=== PATIENT | female | born 1990 | race Caucasian/White ===

== ENCOUNTER 2020-07-13 17:42 | Outpatient (CLI) | payer OTHER, SELFPAY ==
[2020-07-13 18:15] VITALS: BP 141/91; PULSE 74
[2020-07-13 18:16] LABS: Basophils Percent Auto 0.4 % (0.2-1.2); Eosinophils Absolute Auto 0.1 K/mm3 (0-0.3); Eosinophils Percent Auto 0.7 % (0-4.4); Hematocrit 35.9 % (37.0-47.0); Hemoglobin 11.8 g/dL (12.0-15.0); Immature Granulocyte Absolute 0.03 K/mm3 (0.00-0.031); Immature Granulocyte Percent A 0.4 % (0-0.5); Lymphocytes Absolute Auto 1.44 K/mm3 (0.9-3.2); Lymphocytes Percent Auto 20.1 % (18.3-44.2); Mean Corpuscular HGB Conc 32.9 g/dl (32-36); Mean Corpuscular Hemoglobin 27.9 pg (26-34); Mean Corpuscular Volume 84.9 fl (80-100); Mean Platelet Volume 10.5 fl (7.4-10.4); Monocytes Absolute Auto 0.6 K/mm3 (0.1-0.6); Neutrophils Percent Auto 70.4 % (45.5-73.1); Platelet Count Result 215 k/mm3 (150-375); Red Blood Count 4.23 M/mm3 (4.2-5.4); Red Cell Distribution Width 14.8 % (11.5-14.5); White Blood Count 7.2 K/mm3 (4.5-10.0)
[2020-07-13 18:23] LABS: Add Urine Microscopic? YES; Appearance Urine Cloudy (Clear); Bacteria Urine Trace /hpf; Bilirubin Urine Negative (Negative); Blood Urine Negative (Negative); Color Urine Yellow (Yellow); Glucose Urine UA Negative (Negative); Ketones Urine Negative (Negative); Leukocyte Esterase Ur 2+ LEU/UL (NEGATIVE); Mucus Urine Rare /lpf; Nitrate Urine Negative (Negative); Protein Urine Negative (Negative); Specific Grav Ur 1.014 (1.001-1.035); Squamous Epithelial Cell Urine Many /hpf (Few); Urobilinogen Urine Negative mg/dL (<2.0)
[2020-07-13 18:25] LABS: Creatinine Urine 88.5 mg/dL; Total Protein Urine Random 21 mg/dL; Ur Ttl Prot Creatinine Ratio 0.24 mg/mg (0-0.20)
[2020-07-13 18:26] LABS: Alanine Aminotransferase 11 U/L (4-35); Albumin Level 3.3 g/dL (3.5-5.1); Alkaline Phosphatase 142 U/L (38-126); Anion Gap 4 mmol/L (8-16); Aspartate Amino Transferase 21 U/L (14-36); Bilirubin,Total 0.2 mg/dL (0.2-1.3); Blood Urea Nitrogen 7 mg/dL (7-17); Calcium 8.9 mg/dL (8.4-10.2); Carbon Dioxide 21 mmol/L (22-30); Chloride 109 mmol/L (98-107); Estimated Glomerular Filt Rate > 60; Glucose 99 mg/dL (65-105); Potassium 3.5 mmol/L (3.4-5.0); Sodium 134 mmol/L (137-145); Uric Acid 4.3 mg/dL (2.5-7.5)
[2020-07-13 18:31] VITALS: BP 145/93; PULSE 79
[2020-07-13 18:45] VITALS: BP 146/84; PULSE 79
[2020-07-13 19:00] VITALS: BP 142/95; PULSE 82
[2020-07-13 19:15] VITALS: BP 148/92; PULSE 82
[2020-07-13 19:20] VITALS: BP 141/91; PULSE 79
== END 2020-07-13 19:37 | disposition home or self-care (01) ==
LOC: ANHOBOP 17:47 → ANHOBPP 17:48
PROVIDERS: PCP Family Medicine; Visit Provider Obstetrics & Gynecology
DX: O13.9 Gestational [pregnancy-induced] hypertension without significant proteinuria, unspecified trimester (principal); Z3A.00 Weeks of gestation of pregnancy not specified
CPT/HCPCS: 36415; 59025; 80053; 81001; 82570; 84156; 84550; 85025; 87086; 99199

== ENCOUNTER 2020-07-15 20:22 | Observation (INO) | payer OTHER, SELFPAY ==
[2020-07-15 20:40] VITALS: BP 152/98; PULSE 75
[2020-07-15 20:45] VITALS: BP 150/98; PULSE 75
[2020-07-15 21:00] VITALS: BP 132/91; PULSE 75
[2020-07-15 21:07] LABS: Basophils Percent Auto 0.1 % (0.2-1.2); Eosinophils Absolute Auto 0.1 K/mm3 (0-0.3); Eosinophils Percent Auto 0.7 % (0-4.4); Hematocrit 35.7 % (37.0-47.0); Hemoglobin 11.8 g/dL (12.0-15.0); Immature Granulocyte Absolute 0.03 K/mm3 (0.00-0.031); Immature Granulocyte Percent A 0.4 % (0-0.5); Lymphocytes Absolute Auto 1.37 K/mm3 (0.9-3.2); Mean Corpuscular HGB Conc 33.1 g/dl (32-36); Mean Corpuscular Hemoglobin 27.7 pg (26-34); Mean Corpuscular Volume 83.8 fl (80-100); Mean Platelet Volume 10.5 fl (7.4-10.4); Monocytes Absolute Auto 0.5 K/mm3 (0.1-0.6); Monocytes Percent Auto 6.4 % (2.6-8.5); Neutrophils Absolute Auto 5.7 K/mm3 (1.3-6.7); Neutrophils Percent Auto 74.4 % (45.5-73.1); Platelet Count Result 205 k/mm3 (150-375); Red Blood Count 4.26 M/mm3 (4.2-5.4); Red Cell Distribution Width 14.7 % (11.5-14.5); White Blood Count 7.6 K/mm3 (4.5-10.0)
[2020-07-15 21:13] LABS: Add Urine Microscopic? YES; Appearance Urine Cloudy (Clear); Bacteria Urine 1+ /hpf; Bilirubin Urine Negative (Negative); Blood Urine Negative (Negative); Color Urine Yellow (Yellow); Glucose Urine UA Negative (Negative); Ketones Urine Negative (Negative); Leukocyte Esterase Ur 3+ LEU/UL (NEGATIVE); Mucus Urine Rare /lpf; Nitrate Urine Negative (Negative); Protein Urine 1+ mg/dL (Negative); Specific Grav Ur 1.015 (1.001-1.035); Squamous Epithelial Cell Urine Many /hpf (Few); Urobilinogen Urine Negative mg/dL (<2.0); WBC Urine 21-30 /hpf (0-3)
[2020-07-15 21:15] VITALS: BP 146/95; PULSE 73
[2020-07-15 21:22] LABS: Alanine Aminotransferase 10 U/L (4-35); Albumin Level 3.5 g/dL (3.5-5.1); Alkaline Phosphatase 172 U/L (38-126); Anion Gap 5 mmol/L (8-16); Aspartate Amino Transferase 20 U/L (14-36); Bilirubin,Total 0.3 mg/dL (0.2-1.3); Blood Urea Nitrogen 5 mg/dL (7-17); Calcium 8.5 mg/dL (8.4-10.2); Carbon Dioxide 25 mmol/L (22-30); Chloride 105 mmol/L (98-107); Estimated Glomerular Filt Rate > 60; Glucose 86 mg/dL (65-105); Potassium 3.3 mmol/L (3.4-5.0); Sodium 135 mmol/L (137-145); Uric Acid 4.5 mg/dL (2.5-7.5)
[2020-07-15 21:30] VITALS: BP 141/96; PULSE 77
--- NOTE | 2020-07-15 21:40 | WPDOBADMIT ---
Obstetrics - Admit Note Admission Note: record reviewed. Additions to the history and/or subsequent changes in the physical findings follow. 29 y/o G1 at 38 weeks with likely CHTN. BP has been 140s/90s in office. Labs were OK 2 days ago. She is a migraineur and developed a headache this evening. She took a dose of Imitrex and then came in. No change in swelling. No visual field change. No epigastric or RUQ pain. Headache has improved dramatically (from an 8 to a 3) since her arrival here. AVSS (bp 140s/90s) NST reactive TOCO: no contractions ABD soft, nontender, gravid, EXT nontender with 1+ pitting edema NEURO: DTR 2+/4 and symmetric bilaterally Labs noted. UA: 1+ proteinuria A: IUP at 38 weeks with CHTN, possible gestational HTN. No evidence of preeclampsia currently. P: We reviewed the possibility of induction of labor. Reviewed risks, benefits and alternatives in detail. She strongly prefers to go home and rest and manage expectantly. She has an appointment early next week with me. Reviewed instructions, precautions in detail.
[2020-07-15 21:45] VITALS: BP 141/96; PULSE 79
[2020-07-15 21:51] VITALS: BMI 38.7
--- NOTE | 2020-07-15 21:51 | OBADM ---
This patient, Charisma Garces, admitted to the OB room OB Post 116 for observation. Patient/family oriented to hospital policies and general routines including ID bracelet, bed and alarms, visiting hours, pain management, procedures, bathroom and other care routines, personal items, smoking policy, room service/diet, and visiting hours. Patient/Family are encouraged to report perceived risks to care and to ask questions if they do not understand what they are told or what they should do.
[2020-07-15 22:18] LABS: Creatinine Urine 128.1 mg/dL; Total Protein Urine Random 19 mg/dL; Ur Ttl Prot Creatinine Ratio 0.15 mg/mg (0-0.20)
--- NOTE | 2020-08-05 18:20 | PM.OBTRLD ---
OB - Triage/Final Diagnosis Visit Information Comments/Additional reasons for admission: I have assessed the risk for this patient, Charisma Garces, and determined that she would benefit from observation care. Evaluation Laboratory results: Laboratory Tests 07/15/20 07/15/20 07/15/20 20:57 20:57 20:57 WBC 7.6 RBC 4.26 Hgb 11.8 L Hct 35.7 L MCV 83.8 MCH 27.7 MCHC 33.1 RDW 14.7 H Plt Count 205 MPV 10.5 H Immature Gran % (Auto) 0.4 Neut % (Auto) 74.4 H Lymph % (Auto) 18.0 L [place] % (Auto) 6.4 Eos % (Auto) 0.7 Baso % (Auto) 0.1 L Lymph # (Auto) 1.37 [place] # (Auto) 0.5 Eos # (Auto) 0.1 Baso # (Auto) 0.0 Abs Immat Gran (auto) 0.03 Absolute Neuts (auto) 5.7 Absolute Nucleated RBC 0.0 Nucleated RBC % 0.0 Sodium Potassium Chloride Carbon Dioxide Anion Gap BUN Creatinine Estim Creat Clear Calc Estimated GFR Glucose Uric Acid Calcium Total Bilirubin AST ALT Alkaline Phosphatase Total Protein Albumin Urine Color Yellow Urine Appearance Cloudy H Urine pH 6.0 Ur Specific [place] 1.015 Urine Protein 1+ H Urine Glucose (UA) Negative Urine Ketones Negative Ur Blood (Man) Negative Urine Nitrate Negative Urine Bilirubin Negative Urine Urobilinogen Negative Ur Leukocyte Esterase 3+ H Urine RBC 3-5 H Urine WBC 21-30 H Ur Squamous Epith Cells Many H Urine Bacteria 1+ H Urine Mucus Rare U Random Total Protein 19 Urine Creatinine 128.1 Protein/Creat Ratio 2 0.15 07/15/20 20:57 WBC RBC Hgb Hct MCV MCH MCHC RDW Plt Count MPV Immature Gran % (Auto) Neut % (Auto) Lymph % (Auto) [place] % (Auto) Eos % (Auto) Baso % (Auto) Lymph # (Auto) [place] # (Auto) Eos # (Auto) Baso # (Auto) Abs Immat Gran (auto) Absolute Neuts (auto) Absolute Nucleated RBC Nucleated RBC % Sodium 135 L Potassium 3.3 L Chloride 105 Carbon Dioxide 25 Anion Gap 5 L BUN 5 L Creatinine 0.70 Estim Creat Clear Calc Not Reportable Estimated GFR > 60 Glucose 86 Uric Acid 4.5 Calcium 8.5 Total Bilirubin 0.3 AST 20 ALT 10 Alkaline Phosphatase 172 H Total Protein 7.0 Albumin 3.5 Urine Color Urine Appearance Urine pH Ur Specific [place] Urine Protein Urine Glucose (UA) Urine Ketones Ur Blood (Man) Urine Nitrate Urine Bilirubin Urine Urobilinogen Ur Leukocyte Esterase Urine RBC Urine WBC Ur Squamous Epith Cells Urine Bacteria Urine Mucus U Random Total Protein Urine Creatinine Protein/Creat Ratio 2 Final Diagnosis (1) Headache: Code(s): R51.9 - Headache, unspecified Status: Acute (2) Chronic hypertension affecting : Code(s): O10.919 - Unspecified pre-existing hypertension complicating , unspecified trimester Status: Acute
== END 2020-07-15 22:05 | disposition home or self-care (01) ==
PROVIDERS: Admitting Provider Obstetrics & Gynecology; PCP Family Medicine; Visit Provider Obstetrics & Gynecology
DX: O26.893 Other specified pregnancy related conditions, third trimester (principal); R51.9 Headache, unspecified; Z3A.38 38 weeks gestation of pregnancy
CPT/HCPCS: 36415; 59025; 80053; 81001; 82570; 84156; 84550; 85025; 87086; G0378; G0379

== ENCOUNTER 2020-07-29 17:15 | Outpatient (RCR) | payer OTHER, SELFPAY ==
[2020-07-23 17:42] LABS: Basophils Percent Auto 0.2 % (0.2-1.2); Eosinophils Absolute Auto 0.1 K/mm3 (0-0.3); Eosinophils Percent Auto 0.6 % (0-4.4); Hematocrit 35.9 % (37.0-47.0); Hemoglobin 11.8 g/dL (12.0-15.0); Immature Granulocyte Absolute 0.06 K/mm3 (0.00-0.031); Immature Granulocyte Percent A 0.7 % (0-0.5); Lymphocytes Absolute Auto 1.72 K/mm3 (0.9-3.2); Lymphocytes Percent Auto 21.4 % (18.3-44.2); Mean Corpuscular HGB Conc 32.9 g/dl (32-36); Mean Corpuscular Hemoglobin 27.8 pg (26-34); Mean Corpuscular Volume 84.7 fl (80-100); Mean Platelet Volume 10.5 fl (7.4-10.4); Monocytes Absolute Auto 0.6 K/mm3 (0.1-0.6); Neutrophils Absolute Auto 5.6 K/mm3 (1.3-6.7); Neutrophils Percent Auto 70.1 % (45.5-73.1); Platelet Count Result 210 k/mm3 (150-375); Red Blood Count 4.24 M/mm3 (4.2-5.4)
[2020-07-23 17:55] LABS: Alanine Aminotransferase 11 U/L (4-35); Albumin Level 3.4 g/dL (3.5-5.1); Alkaline Phosphatase 157 U/L (38-126); Anion Gap 7 mmol/L (8-16); Aspartate Amino Transferase 19 U/L (14-36); Bilirubin,Total 0.2 mg/dL (0.2-1.3); Blood Urea Nitrogen 6 mg/dL (7-17); Calcium 8.8 mg/dL (8.4-10.2); Carbon Dioxide 23 mmol/L (22-30); Chloride 107 mmol/L (98-107); Estimated Glomerular Filt Rate > 60; Glucose 91 mg/dL (65-105); Potassium 3.3 mmol/L (3.4-5.0); Sodium 137 mmol/L (137-145); Uric Acid 4.6 mg/dL (2.5-7.5)
[2020-07-23 18:20] VITALS: PULSE 79
[2020-07-29 18:01] LABS: Hematocrit 36.6 % (37.0-47.0); Mean Corpuscular HGB Conc 32.8 g/dl (32-36); Mean Corpuscular Volume 85.3 fl (80-100); Mean Platelet Volume 10.1 fl (7.4-10.4); Platelet Count Result 199 k/mm3 (150-375); Red Blood Count 4.29 M/mm3 (4.2-5.4); Red Cell Distribution Width 15.2 % (11.5-14.5); White Blood Count 8.1 K/mm3 (4.5-10.0)
[2020-07-29 18:05] VITALS: BP 136/93; PULSE 86
[2020-07-29 18:10] LABS: Alanine Aminotransferase 12 U/L (4-35); Albumin Level 3.1 g/dL (3.5-5.1); Alkaline Phosphatase 159 U/L (38-126); Anion Gap 7 mmol/L (8-16); Aspartate Amino Transferase 20 U/L (14-36); Bilirubin,Total 0.2 mg/dL (0.2-1.3); Blood Urea Nitrogen 6 mg/dL (7-17); Calcium 8.5 mg/dL (8.4-10.2); Carbon Dioxide 20 mmol/L (22-30); Chloride 109 mmol/L (98-107); Estimated Glomerular Filt Rate > 60; Glucose 82 mg/dL (65-105); Potassium 3.7 mmol/L (3.4-5.0); Sodium 136 mmol/L (137-145); Uric Acid 4.3 mg/dL (2.5-7.5)
--- NOTE | 2020-07-29 18:36 | PC.NURSE ---
Dr. Munsno returned page and informed of BP's, reactive NST, and lab results. Phone taken to pt room and placed on speaker phone for MD to speak with pt. Discussed pt's due date was 07/24/20. Plan made for pt to keep her office appointment on Monday and decide on a time to induction of labor unless she goes into labor on her own before then. Pt verbalizes understanding. Pt has Hypertension in handouts already and reviewed warning signs.
== END 2020-08-03 08:32 | disposition home or self-care (01) ==
LOC: ANHOBOP 17:15
PROVIDERS: PCP Family Medicine; Visit Provider Obstetrics & Gynecology
DX: O16.3 Unspecified maternal hypertension, third trimester (principal); Z3A.39 39 weeks gestation of pregnancy; Z3A.40 40 weeks gestation of pregnancy
CPT/HCPCS: 36415; 59025; 80053; 84550; 85025; 85027

== ENCOUNTER 2020-08-01 08:54 | Inpatient (IN) | payer OTHER, SELFPAY ==
[2020-08-01] VITALS (156 sets, daily range): BP systolic 80–155; BP diastolic 49–109; PULSE 66–114; RESP 18–20; TEMP 36.6–37.1; O2SAT 95–100; BMI 38.7
--- NOTE | ~2020-08-01 | XR_ITS ---
EXAMINATION: XR abdomen/kub 1V DATE: 08/01/2020 19:16 INDICATION: Emergency section. TECHNIQUE: A supine view of the abdomen was obtained. COMPARISON: None. FINDINGS: Small amount of gas and stool scattered throughout the colon. No dilated loops of bowel to suggest ob struction. No radiopaque foreign bodies identified in the visualized abdomen and pelvis which exclude s the lateral most left flank including portions of the descending colon. Bones are unremarkable. IMPRESSION: 1. Nonobstructive bowel gas pattern.. 2. No radiopaque foreign bodies identified in the visualized abdomen and pelvis which excludes the la teral most left flank including portions of the descending colon. Reviewed, dictated and finalized at location A. IMPRESSION: 1. Nonobstructive bowel gas pattern.. 2. No radiopaque foreign bodies identified in the visualized abdomen and pelvis which excludes the lateral most left flank including portions of the descendin g colon.
--- NOTE | 2020-08-01 08:54 | LDADM ---
This patient, Charisma Garces, was admitted to Labor/Delivery/Recovery 106 on 08/01/20 at 08:54. Plans for labor, pain management and were discussed with patient. Patient/family oriented to hospital policies and general routines including ID bracelet, bed and alarms, visiting hours, pain management, procedures, bathroom and other care routines, personal items, smoking policy, room service/diet and guest tray routines, security routines, and visiting hours. Patient/Family are encouraged to report perceived risks to care and to ask questions if they do not understand what they are told or what they should do. See OBIX for further documentation.
[2020-08-01] MEDS: LACTATED RINGERS 1,000 ML 125 ML IV CONT ×2 (09:52→14:10)
[2020-08-01] MEDS: OXYTOCIN 30 UNITS/NS 500 ML 30 UNITS/500 ML BAG IV CONT (09:52)
[2020-08-01 09:58] LABS: Basophils Percent Auto 0.3 % (0.2-1.2); Eosinophils Percent Auto 0.6 % (0-4.4); Hematocrit 38.8 % (37.0-47.0); Hemoglobin 12.7 g/dL (12.0-15.0); Immature Granulocyte Absolute 0.03 K/mm3 (0.00-0.031); Immature Granulocyte Percent A 0.4 % (0-0.5); Lymphocytes Absolute Auto 1.44 K/mm3 (0.9-3.2); Lymphocytes Percent Auto 20.3 % (18.3-44.2); Mean Corpuscular HGB Conc 32.7 g/dl (32-36); Mean Corpuscular Volume 85.5 fl (80-100); Monocytes Absolute Auto 0.3 K/mm3 (0.1-0.6); Monocytes Percent Auto 4.8 % (2.6-8.5); Neutrophils Absolute Auto 5.2 K/mm3 (1.3-6.7); Neutrophils Percent Auto 73.6 % (45.5-73.1); Platelet Count Result 196 k/mm3 (150-375); Red Blood Count 4.54 M/mm3 (4.2-5.4); Red Cell Distribution Width 15.2 % (11.5-14.5); White Blood Count 7.1 K/mm3 (4.5-10.0)
--- NOTE | 2020-08-01 10:13 | P.PNAN_ITS ---
Anes - Eval Pre Procedure Procedure: labor epidural Date/Time: 08/01/20 10:13 Surgeon: Jeimy Preop Diagnosis: Pain during labor Pre Op Diagnosis: Labor Patient Data Age: 29 Gender: F Height: 5 ft 7 in Weight: 112 kg Last Vital Signs Pulse 100 08/01/20 10:00 BP 139/92 H 08/01/20 10:00 Allergies Allergy/AdvReac Type Severity Reaction Status Date / Time benzoyl peroxide AdvReac Intermediate rash Verified 02/27/19 11:06 Home Medications Medication Instructions Recorded Confirmed Type PNV cmb#95-ferrous fumarate-FA 1 tablet PO DAILY 07/06/20 08/01/20 History [] sertraline 100 mg PO DAILY 07/06/20 08/01/20 History Laboratory Tests 08/01/20 08/01/20 09:28 09:28 WBC 7.1 K/mm3 K/mm3 (4.5-10.0) RBC 4.54 M/mm3 M/mm3 (4.2-5.4) Hgb 12.7 g/dL g/dL (12.0-15.0) Hct 38.8 % % (37.0-47.0) MCV 85.5 fl fl (80-100) MCH 28.0 pg pg (26-34) MCHC 32.7 g/dl g/dl (32-36) RDW 15.2 % H % (11.5-14.5) Plt Count 196 k/mm3 k/mm3 (150-375) MPV 11.0 fl H fl (7.4-10.4) Immature Gran % (Auto) 0.4 % % (0-0.5) Neut % (Auto) 73.6 % H % (45.5-73.1) Lymph % (Auto) 20.3 % % (18.3-44.2) [place] % (Auto) 4.8 % % (2.6-8.5) Eos % (Auto) 0.6 % % (0-4.4) Baso % (Auto) 0.3 % % (0.2-1.2) Lymph # (Auto) 1.44 K/mm3 K/mm3 (0.9-3.2) [place] # (Auto) 0.3 K/mm3 K/mm3 (0.1-0.6) Eos # (Auto) 0.0 K/mm3 K/mm3 (0-0.3) Baso # (Auto) 0.0 K/mm3 K/mm3 (0.0-0.1) Abs Immat Gran (auto) 0.03 K/mm3 K/mm3 (0.00-0.031) Absolute Neuts (auto) 5.2 K/mm3 K/mm3 (1.3-6.7) Absolute Nucleated RBC 0.0 K/mm3 K/mm3 (0.0-0.012) Nucleated RBC % 0.0 % % (0.0-0.2) RPR Pending Patient hx anesthesia problems: none Family hx anesthesia problems: none PMFSH Past Medical History Medical History TAJ (generalized anxiety disorder) Migraine with aura and without status migrainosus, not intractable Family History Family History Grandparent Hypertension Social History Social History Smoking status: Never smoker Second hand tobacco smoke exposure: No Alcohol intake: current Substance use: never Substance use type: does not use Gender identity (if verbalized by the patient): Female Spiritual care concerns: No Exam Day of Procedure 08/01/20 10:13 Patient weight: obese Neurological: alert and oriented
[2020-08-01 10:40] LABS: Alanine Aminotransferase 14 U/L (4-35); Albumin Level 3.4 g/dL (3.5-5.1); Alkaline Phosphatase 179 U/L (38-126); Anion Gap 9 mmol/L (8-16); Aspartate Amino Transferase 23 U/L (14-36); Bilirubin,Total 0.2 mg/dL (0.2-1.3); Blood Urea Nitrogen 5 mg/dL (7-17); Calcium 8.5 mg/dL (8.4-10.2); Carbon Dioxide 19 mmol/L (22-30); Chloride 109 mmol/L (98-107); Estimated CRCL calculation 149 ml/min; Estimated Glomerular Filt Rate > 60; Glucose 111 mg/dL (65-105); Potassium 3.1 mmol/L (3.4-5.0); Sodium 137 mmol/L (137-145); Uric Acid 5.1 mg/dL (2.5-7.5)
[2020-08-01 11:15] LABS: Total Protein Urine Random 15 mg/dL
[2020-08-01 11:30] LABS: Creatinine Urine 149.9 mg/dL; Total Protein Urine Random 15 mg/dL
[2020-08-01 18:10] LABS: Hematocrit 34.8 % (37.0-47.0); Mean Corpuscular HGB Conc 31.6 g/dl (32-36); Mean Corpuscular Hemoglobin 28.6 pg (26-34); Mean Corpuscular Volume 90.6 fl (80-100); Mean Platelet Volume 10.5 fl (7.4-10.4); Platelet Count Result 182 k/mm3 (150-375); Red Blood Count 3.84 M/mm3 (4.2-5.4); Red Cell Distribution Width 15.3 % (11.5-14.5)
--- NOTE | 2020-08-01 19:07 | PM.OBPNLAB ---
Pain Control Date/time seen: 08/01/20 19:07 Pain control: epidural Pelvic Exam Dilation (cm): 9 Effacement (%): 100 station: +1 Amniotic membrane status: Ruptured Contractions Monitor mode: Internal Contraction pattern: Regular Status status: Category ll Assessment and Plan Comments: Pt had category 2 FHT. FHT had a prolonged decel at 1600. After interventions, FHT returned to baseline. FHT was noted to have recurrent late decelerations after the prolonged decel. Pt was found to be 7.5 cm but completely effaced and could stretch to 9. Pt attempted to push over a few contractions and FHT became bradycardic without return to baseline. Decision was made to proceed with emergency section. Decision was called at 1709.
--- NOTE | 2020-08-01 19:17 | W.PM.PROC2 ---
Procedure Note - Detailed Date of Procedure 08/01/20 Pre-op Diagnosis Labor Post-op Diagnosis same Procedure Performed Primary emergency section Surgeon Santo St MD Anesthesia epidural Indications non-reassuring FHT terminal bradycardia Description of Procedure Pt was in labor and progressed to 7.5 cm. FHT were cat 2 with recurrent late decelerations. Cervix was able to stretch to 9cm and be reduced with pushing. Pt attempted to push for a couple of contractions when FHT were noted to be bradycardic without return to baseline. Emergency was called at 1709. The patient was taken to the operating room. The maternal abdomen was splashed with betadine. The abdomen was tested and anesthesia was found to be adequate. The patient was not properly draped in sterile fashion due to emergency. Skin incision was made at 1719. The incision was carried down to the fascia. The fascia was from the underlying rectus muscle bluntly. The rectus muscles were in the midline and the peritoneum was opened and stretched bluntly. A low-transverse uterine incision was made sharply with the scalpel and entry was made into the uterine cavity. The uterine incision was extended laterally bluntly. The bladder blade was removed and the fetus was delivered atraumatically. The umbilical cord was clamped twice and cut. The was handed off to the waiting staff. Infant delivery time was 1720. A second segment of umbilical cord was clamped and cut for cord blood gasses. Cord blood was collected for determination of the blood type and for direct [place]. The placenta was delivered spontaneously without difficulty. The uterus was exteriorized and cleared of all clots and debris. On inspection, there was a large extension of the uterine incision along the maternal right side to the level of the cervix. The uterine incision was repaired using 0-Monocryl suture in a running fashion down to the level of the extension. A second layer of 0 Monocryl suture was used in an imbricating fashion to obtain excellent hemostasis and uterine strength. The uterine closure was inspected for hemostasis. Surgi-cell was placed over the right incisional extension to assure hemostasis. The midline of the uterine incision was also noted to be oozing. A single figure of eight suture was placed for hemostasis. Hemaderm was then applied to the midline of the incision. The posterior aspect of the uterus and the broad ligaments were inspected and the posterior cul-de-sac cleared of fluid and blood clots. The uterine closure was again inspected and found to be hemostatic. The uterus was returned to the abdominal cavity. The pericolic gutters were inspected and were cleared of all blood clots and debris. The uterine closure was then re inspected to ensure hemostasis as were all subfascial tissues. The peritoneum was closed using 3-0 vicryl in a running fashion. The fascia was reapproximated with 0-vicryl in a running fashion. The subcutaneous tissue was irrigated and hemostasis achieved with electrocautery. It was reapproximated with 3-0 vicryl in a running fashion. Prior to skin closer, X-ray was brought into the OR to assure no surgical instruments or sponges were left in the abdomen since no official count was performed due to emergency scenario. The skin was closed with horacio. A sterile dressing was applied to the wound. The patient tolerated the procedure well. The patient was taken to recovery in stable condition and without anticipated complications. Given non-sterile conditions, triple antibiotic therapy with ampicillin, gentamycin and clindamycin. Estimated Blood Loss 735 Urine Output 150 Drains No Packing No Pathology yes (placenta) Complications No immediate complications Condition stable Disposition floor ( )
[2020-08-01] MEDS: OXYTOCIN 30 UNITS/NS 500 ML 30 UNITS/500 ML BAG 125 UNITS IV CONT (19:26)
[2020-08-01] MEDS: fentaNYL CITRATE INJ (*CRX) 100 MCG/2 ML VIAL 25 MCG IV PUSH (19:37)
[2020-08-01] MEDS: fentaNYL CITRATE INJ (*CRX) 100 MCG/2 ML VIAL 50 MCG IV PUSH ×2 (20:23→22:01)
--- NOTE | 2020-08-01 21:20 | PC.NURSE ---
Recovery completed. Pt . Will move up to pp room after.
--- NOTE | 2020-08-01 21:50 | PC.NURSE ---
Report called to Rebekah Gibson RN pt going to room 290 for pp care.
[2020-08-01] MEDS: CLINDAMYCIN 900 MG/D5W 50 ML 900 MG/50 ML PIGGYBACK 50 MG IVPB (23:16)
[2020-08-02 01:00] VITALS: BP 135/82; PULSE 87; RESP 18; TEMP 37.2; O2SAT 98
[2020-08-02] MEDS: HYDROcodone/acetaminophen (*CRX) 5-325 MG TABLET 1 TAB PO (01:19)
[2020-08-02] MEDS: KETOROLAC 30 MG/ML VIAL (*BKC) IV PUSH ×3 (01:20→16:54)
[2020-08-02] MEDS: SIMETHICONE 80 MG TAB.CHEW PO ×4 (01:34→22:36)
[2020-08-02] MEDS: AMPICILLIN 2 GM/NS 100 ML 2 GM/100 ML BAG IVPB ×3 (01:35→12:45)
[2020-08-02] MEDS: DEXTROSE 5%/0.45% SOD CHL 1,000 ML 125 ML IV CONT (02:32)
--- NOTE | 2020-08-02 02:54 | OBPPTRN ---
Patient transferred to post room #290 with maxi air glide mattress. Support person present. Oriented to unit, room, information board, rooming in, admission packet and security measures. Patient verbalizes understanding.
[2020-08-02 05:10] VITALS: BP 111/78; PULSE 91; RESP 18; TEMP 36.2; O2SAT 97
[2020-08-02] MEDS: GENTAMICIN SULFATE INJ 120 MG in DEXTROSE 5% 100 ML 100 MG IVPB ×2 (05:54→14:00)
[2020-08-02] MEDS: CLINDAMYCIN 900 MG/D5W 50 ML 900 MG/50 ML PIGGYBACK 50 MG IVPB ×2 (07:00→15:00)
[2020-08-02 07:07] LABS: Basophils Percent Auto 0.3 % (0.2-1.2); Eosinophils Percent Auto 0.1 % (0-4.4); Hematocrit 27.7 % (37.0-47.0); Hemoglobin 8.8 g/dL (12.0-15.0); Immature Granulocyte Absolute 0.04 K/mm3 (0.00-0.031); Immature Granulocyte Percent A 0.4 % (0-0.5); Lymphocytes Absolute Auto 1.06 K/mm3 (0.9-3.2); Lymphocytes Percent Auto 10.1 % (18.3-44.2); Mean Corpuscular HGB Conc 31.8 g/dl (32-36); Mean Corpuscular Hemoglobin 28.2 pg (26-34); Mean Corpuscular Volume 88.8 fl (80-100); Mean Platelet Volume 10.8 fl (7.4-10.4); Monocytes Absolute Auto 0.6 K/mm3 (0.1-0.6); Neutrophils Absolute Auto 8.7 K/mm3 (1.3-6.7); Neutrophils Percent Auto 83.1 % (45.5-73.1); Platelet Count Result 154 k/mm3 (150-375); Red Blood Count 3.12 M/mm3 (4.2-5.4); Red Cell Distribution Width 15.4 % (11.5-14.5); White Blood Count 10.5 K/mm3 (4.5-10.0)
[2020-08-02] MEDS: HYDROcodone/acetaminophen (*CRX) 10-325 MG TABLET 1 TAB PO ×4 (08:04→20:25)
--- NOTE | 2020-08-02 08:07 | PM.OBPNVD ---
OB - PN: Subj Subjective Date/time seen: 08/02/20 08:07 Interval history: Patient doing well this AM. she has not yet ambulated out of bed. She is tolerating PO. She reports adequate pain control. Her bleeding is normal and she reports normal lochia. She denies fever, chills, N/V. She has not yet passed flatus. Patient comments: no complaints and pain well controlled; no flatus present OB - PN: Obj Data Labs CBC & Chem 7: 08/02/20 06:56 08/01/20 10:17 Labs: Laboratory Results - last 24 hr 08/01/20 08/01/20 08/01/20 09:28 09:28 10:17 WBC 7.1 RBC 4.54 Hgb 12.7 Hct 38.8 MCV 85.5 MCH 28.0 MCHC 32.7 RDW 15.2 H Plt Count 196 MPV 11.0 H Immature Gran % (Auto) 0.4 Neut % (Auto) 73.6 H Lymph % (Auto) 20.3 [place] % (Auto) 4.8 Eos % (Auto) 0.6 Baso % (Auto) 0.3 Lymph # (Auto) 1.44 [place] # (Auto) 0.3 Eos # (Auto) 0.0 Baso # (Auto) 0.0 Abs Immat Gran (auto) 0.03 Absolute Neuts (auto) 5.2 Absolute Nucleated RBC 0.0 Nucleated RBC % 0.0 Sodium 137 Potassium 3.1 L Chloride 109 H Carbon Dioxide 19 L Anion Gap 9 BUN 5 L Creatinine 0.60 L Estim Creat Clear Calc 149 Estimated GFR > 60 Glucose 111 H Uric Acid 5.1 Calcium 8.5 Total Bilirubin 0.2 AST 23 ALT 14 Alkaline Phosphatase 179 H Total Protein 7.0 Albumin 3.4 L U Random Total Protein Urine Creatinine Protein/Creat Ratio 2 Blood Type O Positive Antibody Screen Negative 08/01/20 08/01/20 08/01/20 10:55 10:55 18:06 WBC 11.0 H RBC 3.84 L Hgb 11.0 L Hct 34.8 L MCV 90.6 D MCH 28.6 MCHC 31.6 L RDW 15.3 H Plt Count 182 MPV 10.5 H Immature Gran % (Auto) Neut % (Auto) Lymph % (Auto) [place] % (Auto) Eos % (Auto) Baso % (Auto) Lymph # (Auto) [place] # (Auto) Eos # (Auto) Baso # (Auto) Abs Immat Gran (auto) Absolute Neuts (auto) Absolute Nucleated RBC Nucleated RBC % Sodium Potassium Chloride Carbon Dioxide Anion Gap BUN Creatinine Estim Creat Clear Calc Estimated GFR Glucose Uric Acid Calcium Total Bilirubin AST ALT Alkaline Phosphatase Total Protein Albumin U Random Total Protein 15 15 Urine Creatinine 149.9 Protein/Creat Ratio 2 0.10 Blood Type Antibody Screen 08/02/20 06:56 WBC 10.5 H RBC 3.12 L Hgb 8.8 L Hct 27.7 L MCV 88.8 MCH 28.2 MCHC 31.8 L RDW 15.4 H Plt Count 154 MPV 10.8 H Immature Gran % (Auto) 0.4 Neut % (Auto) 83.1 H Lymph % (Auto) 10.1 L [place] % (Auto) 6.0 Eos % (Auto) 0.1 Baso % (Auto) 0.3 Lymph # (Auto) 1.06 [place] # (Auto) 0.6 Eos # (Auto) 0.0 Baso # (Auto) 0.0 Abs Immat Gran (auto) 0.04 H Absolute Neuts (auto) 8.7 H Absolute Nucleated RBC 0.0 Nucleated RBC % 0.0 Sodium Potassium Chloride Carbon Dioxide Anion Gap BUN Creatinine Estim Creat Clear Calc Estimated GFR Glucose Uric Acid Calcium Total Bilirubin AST ALT Alkaline Phosphatase Total Protein Albumin U Random Total Protein Urine Creatinine Protein/Creat Ratio 2 Blood Type Antibody Screen Imaging Radiologist's impression: Impressions Abdomen X-Ray 08/01/20 19:18 IMPRESSION: 1. Nonobstructive bowel gas pattern.. 2. No radiopaque foreign bodies identified in the visualized abdomen and pelvis which excludes the lateral most left flank including portions of the descending colon. OB - PN A/P Plan day: 1 Plan: routine care Comments: patient doing well this AM will plan to D/C lance once ambulating tolerating PO H/H , will start iron supplementation pt afebrile and VSS, no concerns for infection at this time will continue triple antibiotics for 24 hrs continue routine PP care plan for circumcision today. risks, benefits, alternatives dis
[2020-08-02 08:15] VITALS: BP 109/73; PULSE 108; PULSE 91; RESP 18; RESP 20; TEMP 37.3; O2SAT 100; O2SAT 97
--- NOTE | 2020-08-02 09:07 | PM.IMHP ---
H&P: HPI History of Present Illness Date/Time: 08/02/20 08:51 29 yo who presents in labor at 41w1d. Pt has had mildly elevated BP in the last few weeks of her . She endorses good movement and denies any vaginal bleeding or leakage of fluid. Chief Complaint: labor post dates Review of Systems Review of Systems: All systems reviewed & are unremarkable except as noted in HPI and below Constitutional: Constitutional: Reports as per HPI Cardiovascular: Cardiovascular: Denies chest pain, Denies leg edema, Denies palpitations, Denies dyspnea and Denies dyspnea on exertion Respiratory: Respiratory: Denies cough, Denies dyspnea and Denies dyspnea on exertion Gastrointestinal: Gastrointestinal: Denies abdominal pain, Denies constipation, Denies diarrhea, Denies nausea and Denies vomiting Genitourinary: Genitourinary: Denies hematuria, Denies urinary frequency, Denies dysuria, Denies pelvic pain, Denies urinary incontinence and Denies vaginal discharge Neurologic: Reports system reviewed and no additional complaints, except as documented Psychiatric: Psychiatric: Reports no additional psychiatric complaints Endocrine: Endocrine: Denies palpitations PMFSH Past Medical History Medical History TAJ (generalized anxiety disorder) Migraine with aura and without status migrainosus, not intractable Family History Family History Grandparent Hypertension Social History Social History Smoking status: Never smoker Second hand tobacco smoke exposure: No Alcohol intake: current Substance use: never Substance use type: does not use Gender identity (if verbalized by the patient): Female Spiritual care concerns: No Meds Home Medications and Allergies Home Medications Medication Instructions Recorded Confirmed Type PNV cmb#95-ferrous fumarate-FA 1 tablet PO DAILY 07/06/20 08/01/20 History [] sertraline 100 mg PO DAILY 07/06/20 08/01/20 History Allergies Allergy/AdvReac Type Severity Reaction Status Date / Time benzoyl peroxide AdvReac Intermediate rash Verified 02/27/19 11:06 Vital Signs Vital Signs - 24 hr 08/01/20 09:30 08/01/20 09:46 08/01/20 10:00 Temperature Pulse Rate 79 89 100 Respiratory Rate Blood Pressure 143/94 H 138/94 H 139/92 H Pulse Oximetry 08/01/20 10:15 08/01/20 10:31 08/01/20 10:46 Temperature Pulse Rate 93 79 83 Respiratory Rate Blood Pressure 150/102 H 144/90 H 139/86 Pulse Oximetry 08/01/20 11:01 08/01/20 11:16 08/01/20 11:28 Temperature Pulse Rate 86 111 H 88 Respiratory Rate Blood Pressure 143/93 H 139/97 H 152/92 H Pulse Oximetry 100 08/01/20 11:29 08/01/20 11:31 08/01/20 11:33 Temperature Pulse Rate 93 88 80 Respiratory Rate Blood Pressure 155/101 H 154/109 H 154/92 H Pulse Oximetry 100 08/01/20 11:35 08/01/20 11:37 08/01/20 11:38 Temperature Pulse Rate 85 95 Respiratory Rate Blood Pressure 141/89 H 148/83 H Pulse Oximetry 99 08/01/20 11:39 08/01/20 11:40 08/01/20 11:42 Temperature Pulse Rate 85 87 110 H Respiratory Rate Blood Pressure 131/85 129/88 121/71 Pulse Oximetry 08/01/20 11:43 08/01/20 11:45 08/01/20 11:46 Temperature Pulse Rate 84 86 Respiratory Rate Blood Pressure 129/81 131/88 Pulse Oximetry 99 08/01/20 11:48 08/01/20 11:50 08/01/20 11:53 Temperature Pulse Rate 103 H 88 85 Respiratory Rate Blood Pressure 133/87 137/90 140/92 H Pulse Oximetry 99 99 08/01/20 11:55 08/01/20 11:57 08/01/20 11:58 Temperature Pulse Rate 84 91 Respiratory Rate Blood Pressure 137/79 139/80 Pulse Oximetry 99 08/01/20 11:59 08/01/20 12:00 08/01/20 12:01 Temperature Pulse Rate 78 91 Respiratory Rate Blood Pressure 132/85 132/79 Pulse Oxim
--- NOTE | 2020-08-02 10:15 | WPDANLDPN2 ---
Anes-Prog Note L&D Date/Time: 08/02/20 10:15 Comfortable throughout: section Neuraxial method: epidural Epidural/Spinal procedure site: clean & non-tender Neuro status: Neuro function grossly intact. Cardiovascular status: normal Respiratory status: normal Airway patency: baseline Mental status: baseline Post-Op hydration status: normal Vital Signs: Last Vital Signs Temp 36.2 C L 08/02/20 05:10 Pulse 91 08/02/20 05:10 Resp 18 08/02/20 05:10 BP 111/78 08/02/20 05:10 Pulse Ox 97 08/02/20 05:10 Pain score (VAS): 7 I/O: Intake & Output 08/01/20 08/02/20 08/02/20 23:59 07:59 15:59 Intake Total 1601.875 750 Output Total 1540 350 Balance 61.875 400 Post-procedural complaints: none Patient feedback: Patient satisfied with anesthetic care.
--- NOTE | 2020-08-02 10:15 | WPDANLDNPN2 ---
Anes-Prog Note L&D-Neuraxial Date/Time: 08/02/20 10:15 Neuraxial medications: epidural PF morphine Opiod-related complaints: none Patient feedback: Patient satisfied with post-operative pain management.
[2020-08-02] MEDS: MULTIVIT/MIN/PREN/FOL AC/IRON TABLET 1 TAB PO (10:23)
[2020-08-02] MEDS: DOCUSATE SODIUM 100 MG CAPSULE PO ×2 (10:23→16:55)
[2020-08-02] MEDS: POLYSACCHARIDE IRON COMPLEX 150 MG CAPSULE PO ×2 (10:23→16:54)
[2020-08-02] MEDS: SERTRALINE HCL 50 MG TABLET 100 MG PO (10:24)
[2020-08-02 12:45] VITALS: BP 98/62; PULSE 100; PULSE 108; RESP 20; TEMP 37.1; O2SAT 100
[2020-08-02 17:00] VITALS: BP 126/77; PULSE 100; PULSE 114; RESP 20; TEMP 36.7; O2SAT 100
[2020-08-02 20:29] VITALS: BP 125/80; PULSE 118; RESP 18; TEMP 36.7; O2SAT 99
[2020-08-02] MEDS: IBUPROFEN 600 MG TABLET PO (22:35)
[2020-08-03] MEDS: HYDROcodone/acetaminophen (*CRX) 10-325 MG TABLET 1 TAB PO ×6 (00:39→23:37)
[2020-08-03] MEDS: IBUPROFEN 600 MG TABLET PO ×3 (04:42→18:20)
[2020-08-03] MEDS: SIMETHICONE 80 MG TAB.CHEW PO ×4 (04:43→23:38)
[2020-08-03 08:20] VITALS: BP 121/84; PULSE 92; RESP 16; TEMP 36.8; O2SAT 92
[2020-08-03] MEDS: MULTIVIT/MIN/PREN/FOL AC/IRON TABLET 1 TAB PO (08:28)
[2020-08-03] MEDS: SERTRALINE HCL 50 MG TABLET 100 MG PO (08:28)
[2020-08-03] MEDS: DOCUSATE SODIUM 100 MG CAPSULE PO ×2 (08:28→18:20)
[2020-08-03] MEDS: POLYSACCHARIDE IRON COMPLEX 150 MG CAPSULE PO ×2 (08:28→18:20)
[2020-08-03 08:41] LABS: Basophils Percent Auto 0.3 % (0.2-1.2); Eosinophils Absolute Auto 0.1 K/mm3 (0-0.3); Eosinophils Percent Auto 0.7 % (0-4.4); Hematocrit 25.5 % (37.0-47.0); Immature Granulocyte Absolute 0.07 K/mm3 (0.00-0.031); Immature Granulocyte Percent A 0.7 % (0-0.5); Lymphocytes Absolute Auto 1.36 K/mm3 (0.9-3.2); Lymphocytes Percent Auto 13.5 % (18.3-44.2); Mean Corpuscular HGB Conc 31.4 g/dl (32-36); Mean Corpuscular Hemoglobin 28.3 pg (26-34); Mean Corpuscular Volume 90.1 fl (80-100); Mean Platelet Volume 10.4 fl (7.4-10.4); Monocytes Absolute Auto 0.6 K/mm3 (0.1-0.6); Monocytes Percent Auto 5.7 % (2.6-8.5); Neutrophils Percent Auto 79.1 % (45.5-73.1); Platelet Count Result 160 k/mm3 (150-375); Red Blood Count 2.83 M/mm3 (4.2-5.4); Red Cell Distribution Width 15.9 % (11.5-14.5); White Blood Count 10.1 K/mm3 (4.5-10.0)
[2020-08-03 09:16] LABS: Rapid Plasma Reagin Non-Reactive (NonReactive)
--- NOTE | 2020-08-03 09:45 | PC.NURSE ---
Mother called out for assist with feeding. Mother reports she has a right inverted nipple and left is flat. Mother has been given a nipple shield to assist with latch. Mother states will latch to shield and will nurse for a short bursts and fall asleep. Mother is supplementing 20mls by ICP order due to jaundice. Mother will pump after each attempt and is currently pumping approx. 10 mls per session, she will use EBM as part of supplementation. Mother states she is pumping without difficulties or discomfort, mother pumped for 9 months with first child due to latch issues. Reviewed feeding cues, frequencies, duration of feedings, feeding elimination flow sheet, and signs of adequate intake. Demonstrated stimulation techniques to wake infant for feeding. Suggested to give 5 mls of formula by bottle then transition to breast. Demonstrated how to roll out nipple before attempting . Discussed the latch assist to draw out nipple before attempting. Assisted with to breast. Reviewed positioning/alignment in football, holding breast in ?C? hold and guided asymmetrical latch on. Infant able to latch correctly without shield within a few attempts. Infant nursed eagerly, with steady draws and frequent swallowing noted. Reviewed signs of a correct latch, effective nursing and suck swallow ratio. would slip to shallow latch, mother reports tenderness. Demonstrated how to adjust latch more deeply while feeding. Mother reports she can feel change in latch and has no tenderness. Nipple care reviewed of lanolin after feedings, warm compresses as needed. Infant released latch and re-latched twice during this attempt with approx 6 minutes of nursing without shield. Shield then applied to complete feeding. Infant was able to latch deeply with shield. Infant nursed with short bursts and became fussy and crying. then supplemented and mother pumped. Suggested mother stimulate while feeding to increase stimulate, increase intake and to assist with maintaining deep latch.
--- NOTE | 2020-08-03 13:03 | PM.OBPNVD ---
OB - PN: Subj Subjective Date/time seen: 08/03/20 13:03 Narrative: Pain OK. Tolerating diet. OB - PN: Obj Data Labs CBC & Chem 7: 08/03/20 08:26 08/01/20 10:17 Labs: Laboratory Results - last 24 hr 08/01/20 08/03/20 09:28 08:26 WBC 10.1 H RBC 2.83 L Hgb 8.0 L Hct 25.5 L MCV 90.1 MCH 28.3 MCHC 31.4 L RDW 15.9 H Plt Count 160 MPV 10.4 Immature Gran % (Auto) 0.7 H Neut % (Auto) 79.1 H Lymph % (Auto) 13.5 L [place] % (Auto) 5.7 Eos % (Auto) 0.7 Baso % (Auto) 0.3 Lymph # (Auto) 1.36 [place] # (Auto) 0.6 Eos # (Auto) 0.1 Baso # (Auto) 0.0 Abs Immat Gran (auto) 0.07 H Absolute Neuts (auto) 8.0 H Absolute Nucleated RBC 0.0 Nucleated RBC % 0.0 RPR Non-reactive OB - PN A/P Plan Comments: A: POD#2, doing well. BP stable without medication. P: Routine care. Exam Narrative: Exam Narrative: AVSS I/O OK ABD soft, nontender, fundus firm. Incision c/d/i. EXT nontender
[2020-08-03 20:00] VITALS: BP 136/88; PULSE 98; RESP 16; TEMP 37.2; O2SAT 99
[2020-08-04] MEDS: IBUPROFEN 600 MG TABLET PO ×2 (01:37→09:43)
[2020-08-04 07:55] VITALS: BP 138/93; PULSE 98; RESP 16; TEMP 36.9; O2SAT 98
--- NOTE | 2020-08-04 08:48 | PM.OBPNVD ---
OB - PN: Subj Subjective Date/time seen: 08/04/20 08:48 Narrative: Gas pains, but has passed flatus and is tolerating diet. Would like to go home. OB - PN: Obj Data Labs CBC & Chem 7: 08/03/20 08:26 08/01/20 10:17 Labs: Laboratory Results - last 24 hr 08/01/20 09:28 RPR Non-reactive OB - PN A/P Plan Comments: A: POD#3, doing well. P: Home to f/u staple removal in 2 days, then f/u pp visit in 4 weeks. Exam Narrative: Exam Narrative: AVSS ABD soft, nontender, fundus firm. Incision c/d/i. EXT nontender
[2020-08-04] MEDS: POLYSACCHARIDE IRON COMPLEX 150 MG CAPSULE PO (09:41)
[2020-08-04] MEDS: MULTIVIT/MIN/PREN/FOL AC/IRON TABLET 1 TAB PO (09:41)
[2020-08-04] MEDS: DOCUSATE SODIUM 100 MG CAPSULE PO (09:41)
[2020-08-04] MEDS: SERTRALINE HCL 50 MG TABLET 100 MG PO (09:42)
[2020-08-04] MEDS: HYDROcodone/acetaminophen (*CRX) 5-325 MG TABLET 1 TAB PO (09:42)
[2020-08-04] MEDS: SIMETHICONE 80 MG TAB.CHEW PO (09:45)
--- NOTE | 2020-08-05 07:49 | PM.OBDSVD ---
DS: Admitting Diagnosis Admitting Diagnosis Admitting Diagnosis: Intrauterine post dates labor gestational hypertension OB - DS: Summary OB Procedures : None OB Procedures Intrapartum: OB Procedures: : Antibiotics Peripartum Data Infant Delivery Method: Emergency Section Procedures: Procedures Operation Date: 08/01/20 17:15 Actual Procedure Side Surgeon p Section [address] MD complications: none Status at Discharge Functional status at discharge: independent ambulation Overall status at discharge: patient is progressing back to baseline Time Spent with Patient Time attestation: Total time spent providing and/or coordinating discharge services: Time spent: Less than 30 minutes Exam Const: General: comfortable and no acute distress Resp: Effort & Inspection: normal respiratory effort Auscultation: clear to auscultation bilaterally Cardio: Rate: regular rate GI: Inspection: non-distended GI Palp: Yes Soft to palpation, No Firmness to palpation present (GI), Yes Tenderness to palpation present (GI) (mild tenderness over incision ) and No Guarding due to palpation present (GI) Auscultation: normal bowel sounds Psych: Appearance: grossly normal Mental Status: mental status grossly normal DS: Data Data Completed and Pending Pending studies at discharge: Pending at discharge 08/01/20 17:21 Surgical [PTH] Routine Discharge Plan Discharge Attending physician on discharge: Ren Munson Consulting providers: Juan Luis Lang Discharging Clinician: Ren Munson Patient Disposition: Home, Self-Care Activity: may shower, may drive after 2 weeks and pelvic rest Diet: regular Wound Care Instructions: incision open to air and other - see discharge instructions Discharge Instructions: Follow up in office in 1 week for staple removal Education: Mom and Baby Guide Given to: Mother Follow-Up: Call your delivering provider's office for an appointment to be seen in: 1 Week Mom and baby should come to the [facility] for the follow-up appointment. Appointment Date/Time: August 05, 2020 at 8:00 am What to expect at your follow-up visit: Physical Assessment Call [phone] if you are unable to keep your appointment time. BREAST CARE: * Wear a snug supportive bra. * For engorgement discomfort: Breast Feeding: * Apply warm moist washcloths * Express milk as needed to relieve engorgement * Wear loose clothing * For sore nipples: * Identify correct latch-on * Apply warm moist washcloths before and after nursing * Air dry nipples after nursing * May apply Lansinoh cream to nipples ABDOMINAL INCISION: * Allow incision to air dry * Do NOT use lotions for powders on your incision * When showering, allow soap and water to run over the incision, but do not wash incision PERINEAL CARE: * Until bleeding stops, use your aries bottle after urinating * Change your pad frequently throughout the day * No tub baths until seen by your physician - You may shower ACTIVITY: * Rest as much as possible. * Do not exercise or lift anything heavier than your baby (such as laundry or other children.) * Avoid stairs or driving as much as possible. * Do not put anything into the vagina. No douching, tampons, or sexual activity until seen by physician. NOTIFY PHYSICIAN IF YOU HAVE ANY QUESTIONS OR IF ANY OF THE FOLLOWING SYMPTOMS OCCUR: * If your incision becomes red, swollen, or more painful than what you have experienced in the hospital. * If your vaginal bleeding becomes foul smelling. * If your vaginal bleeding becomes more heavy than a period or if your bleeding changes from pink to bright red. However, you may pass an occasional walnut-sized clot once or twice for the first week . * If you experience a sharp, shooting pain in you calves. * I
[2020-08-05 07:52] VITALS: BP 148/88; PULSE 81; RESP 20; TEMP 36.6; O2SAT 100
== END 2020-08-04 12:50 | disposition home or self-care (01) | DRG 786 ==
LOC: ANHLDR 17:32 → ANHOB2 22:53
PROVIDERS: Admitting Provider Student in an Organized Health Care Education/Training Program; PCP Family Medicine; Visit Provider Obstetrics & Gynecology
PROC: 10D00Z1 Extraction of Products of Conception, Low, Open Approach (ICD-10-PCS; CPT 59514; principal; 2020-08-01 17:15)
DX: O76 Abnormality in fetal heart rate and rhythm complicating labor and delivery (principal); O41.1230 Chorioamnionitis, third trimester, not applicable or unspecified; O13.4 Gestational [pregnancy-induced] hypertension without significant proteinuria, complicating childbirth; O77.0 Labor and delivery complicated by meconium in amniotic fluid; Z3A.41 41 weeks gestation of pregnancy; Z37.0 Single live birth
CPT/HCPCS: 36415; 59025; 74018; 80053; 81050; 82570; 84156; 84550; 85025; 85027; 86592; 86850; 86900; 86901; 88307; A9270; J0131; J0290; J1580; J1885; J2274; J2370; J2405; J2590; J2795; J3010; J7120

== ENCOUNTER → 2021-04-05 09:27 | Outpatient (CLI) | payer OTHER, SELFPAY ==
[2021-04-05 13:15] LABS: Influenza A QL RT-PCR Negative (Negative); Influenza B QL RT-PCR Negative (Negative); SARS-CoV-2 RNA PCR Negative
== END ==
PROVIDERS: PCP Family Medicine; Visit Provider Physician Assistant
DX: Z20.822 Contact with and (suspected) exposure to COVID-19 (principal); R50.9 Fever, unspecified
CPT/HCPCS: 87502; C9803; U0003; U0005

== ENCOUNTER 2021-07-29 21:27 | Emergency (ER) | payer OTHER, SELFPAY ==
--- NOTE | ~2021-07-29 | CT_ITS ---
EXAMINATION: CT abdomen pelvis wo con DATE: 07/29/2021 23:54 INDICATION: Left abdominal pain. TECHNIQUE: Computed tomography (CT) of the abdomen and pelvis was performed without intravenous contr ast. Automated exposure control and iterative reconstruction technique were employed. The dose-length product was 1427.79 mGy-cm. COMPARISON: None. FINDINGS: The visualized portions of the lung bases demonstrate mild atelectasis. A calcified right l mayte nodule and calcified right hilar lymph nodes are consistent with old granulomatous disease. No pl eural effusion. The heart size is normal. No pericardial effusion. The liver, gallbladder, spleen, pa ncreas, adrenal glands, and kidneys are normal. There are no dilated loops of bowel. The appendix is normal. There is wall thickening of loops of ileum with mild fat stranding in the mesentery. There is physiologic fluid in the pelvis. There are no pathologically enlarged lymph nodes. The bones are unr emarkable. IMPRESSION: 1. Wall thickening of ileum, consistent with enteritis. Reviewed, dictated and finalized at location A.
[2021-07-29 22:13] VITALS: BP 155/105; PULSE 95; RESP 18; TEMP 36.8; O2SAT 99
--- NOTE | 2021-07-29 22:18 | PC.NURSE ---
pt verbalized not taking any of her home medications for atleast 1 week.
[2021-07-29 22:57] LABS: Basophils Absolute Auto 0.1 K/mm3 (0.0-0.1); Basophils Percent Auto 0.4 % (0.2-1.2); Eosinophils Percent Auto 0.3 % (0-4.4); Hematocrit 43.5 % (37.0-47.0); Hemoglobin 13.8 g/dL (12.0-15.0); Immature Granulocyte Absolute 0.03 K/mm3 (0.00-0.031); Immature Granulocyte Percent A 0.3 % (0-0.5); Lymphocytes Absolute Auto 1.11 K/mm3 (0.9-3.2); Lymphocytes Percent Auto 9.3 % (18.3-44.2); Mean Corpuscular HGB Conc 31.7 g/dl (32-36); Mean Corpuscular Hemoglobin 26.3 pg (26-34); Mean Corpuscular Volume 82.9 fl (80-100); Mean Platelet Volume 10.3 fl (7.4-10.4); Monocytes Absolute Auto 0.7 K/mm3 (0.1-0.6); Monocytes Percent Auto 5.5 % (2.6-8.5); Neutrophils Absolute Auto 10.1 K/mm3 (1.3-6.7); Neutrophils Percent Auto 84.2 % (45.5-73.1); Platelet Count Result 281 k/mm3 (150-375); Red Blood Count 5.25 M/mm3 (4.2-5.4); Red Cell Distribution Width 14.6 % (11.5-14.5); White Blood Count 11.9 K/mm3 (4.5-10.0)
[2021-07-29 23:08] LABS: Alanine Aminotransferase 14 U/L (6-35); Albumin Level 4.2 g/dL (3.5-5.1); Alkaline Phosphatase 115 U/L (38-126); Anion Gap 6 mmol/L (8-16); Aspartate Amino Transferase 17 U/L (14-36); Bilirubin,Total 0.4 mg/dL (0.2-1.3); Blood Urea Nitrogen 11 mg/dL (7-17); Calcium 9.1 mg/dL (8.4-10.2); Carbon Dioxide 27 mmol/L (22-30); Chloride 104 mmol/L (98-107); Estimated CRCL calculation 112 ml/min; Estimated Glomerular Filt Rate > 60; Glucose 116 mg/dL (65-110); Lipase 74 U/L (23-300); Potassium 4.2 mmol/L (3.4-5.0); Sodium 137 mmol/L (137-145)
[2021-07-29 23:32] LABS: Appearance Urine Clear (Clear); Bilirubin Urine Negative (Negative); Blood Urine 1+ (Negative); Color Urine Yellow (Yellow); Glucose Urine UA Negative (Negative); Ketones Urine Negative (Negative); Leukocyte Esterase Ur Negative LEU/UL (Negative); Nitrate Urine Negative (Negative); Protein Urine Negative (Negative); Specific Grav Ur 1.025 (1.001-1.035); Urobilinogen Urine 0.2 mg/dL (<2.0); pH Urine 6.5 (5.0-9.0)
[2021-07-29 23:47] LABS: Bacteria Urine Trace /hpf; Mucus Urine Few /lpf; Squamous Epithelial Cell Urine Many /hpf (Few)
[2021-07-29 23:49] LABS: Add Urine Microscopic? YES
--- NOTE | 2021-07-29 23:59 | ED.ABDPAIN ---
HPI - Abdominal Pain General Chief Complaint: Abdominal Pain Stated Complaint: abd pain Time Seen by Provider: 07/29/21 23:34 Source: patient History of Present Illness HPI narrative: Patient presents with left-sided abdominal pain. Reports that pain all day and coming in waves described as a sensation is around her bellybutton and radiates to her left upper abdomen. She attempted take a shower alleviate her symptoms and had multiple episodes of emesis while in the shower. She is unable to identify any clear aggravating or alleviating symptoms. She denies any urinary symptoms diarrhea or constipation. Denies any fevers, cough, congestion, chest pain, shortness of breath. Related Data Home Medications Medication Instructions Recorded Confirmed vit no.95-ferrous 1 tablet PO DAILY 07/06/20 04/06/21 fumarate 28 mg-folic acid 800 mcg tablet () sertraline 50 mg tablet 100 mg PO DAILY 07/06/20 04/06/21 nifedipine 30 mg tablet,extended 30 mg PO DAILY 02/17/21 04/06/21 release norethindrone (contraceptive) 0.35 0.35 mg PO DAILY 02/17/21 04/06/21 mg tablet Allergies Allergy/AdvReac Type Severity Reaction Status Date / Time benzoyl peroxide AdvReac Intermediate rash Verified 07/29/21 22:17 Review of Systems Review of Systems: CONSTITUTIONAL: Denies fever, chills, or sweats. EYES: Denies visual changes, redness, or discharge. ENT: Denies rhinorrhea, congestion, sore throat, or otalgia. CARDIOVASCULAR: Denies chest pain, palpitations, or edema. RESPIRATORY: Denies cough or dyspnea. GASTROINTESTINAL: Abdominal pain with nausea and vomiting GENITOURINARY: Denies dysuria or hematuria. SKIN: Denies rash or itching. MUSCULOSKELETAL: Denies back pain, joint pain, or myalgia. NEUROLOGIC: Denies headache, numbness, dizziness, or weakness. PSYCHIATRIC: Denies anxiety or depression. All systems reviewed & are unremarkable except as noted in HPI and below PMFSH Past Medical History Medical History TAJ (generalized anxiety disorder) Migraine with aura and without status migrainosus, not intractable Family History Family History Grandparent Hypertension Grandparent Afib Grandparent Cerebrovascular accident Diabetes mellitus Obesity Mother Prediabetes Obesity Social History Social History Second hand tobacco smoke exposure: No Alcohol intake: current Alcohol use details: social drinker, rarely Substance use: never Substance use type: does not use Gender identity (if verbalized by the patient): Female Spiritual care concerns: No Exam Narrative: GENERAL: Well-appearing, well-nourished, and in no acute distress. HEAD: Normocephalic, atraumatic. EYES: PERRLA and EOMI. ENT: Nares clear, no rhinorrhea or epistaxis. Mucous membranes moist. NECK: Supple. No masses. No JVD ABDOMEN: Tenderness with outpatient of the left abdomen no rebound or guarding, nondistended. No CVA tenderness EXTREMITIES: Normal range of motion. No edema. SKIN: Warm, dry, no rash. NEURO: No focal deficits. Alert and oriented x3. PSYCH: Normal mood and affect. Course Reevaluation(s) Reevaluation #1: Patient continues to decline supportive medications. Results and plan reviewed with the patient. Patient is comfortable with the outpatient plan. Vital Signs Vital signs: Vital Signs Temperature 36.8 C 07/29/21 22:13 Pulse Rate 95 07/29/21 22:13 Respiratory Rate 18 07/29/21 22:13 Blood Pressure 155/105 H 07/29/21 22:13 Pulse Oximetry 99 07/29/21 22:13 Oxygen Delivery Room Air 07/29/21 22:13 Temperature 36.8 C 07/29/21 22:13 Pulse Rate 109 H 07/30/21 01:37 Respiratory Rate 16 07/30/21 01:37 Blood Pressure 146/94 H 07/30/21 01:37 Pulse Oximetry 99 07/30/21 01:37 Oxygen Delivery Room Air 07/29/21 22:1
[2021-07-30 00:15] VITALS: BP 147/103; PULSE 101; RESP 18; O2SAT 98
[2021-07-30 01:37] VITALS: BP 146/94; PULSE 109; RESP 16; O2SAT 99
--- NOTE | 2021-07-30 01:58 | PC.NURSE ---
This RN spoke with ORACIO De La Rosa about prescription changes. PO bentyl and zofran prescriptions sent to appropriate pharmacy per pt request. This RN attempted to call pt to notify her, no response.
== END 2021-07-30 01:37 | disposition home or self-care (01) ==
PROVIDERS: Emergency Provider Emergency Medicine; PCP Family Medicine
DX: K52.9 Noninfective gastroenteritis and colitis, unspecified (principal)
CPT/HCPCS: 36415; 74176; 80053; 81001; 81025; 83690; 85025; 99284

== ENCOUNTER 2023-05-23 11:22 | Outpatient (CLI) | payer OTHER, SELFPAY ==
--- NOTE | ~2023-05-23 | MMUS_ITS ---
EXAMINATION: MM diagnostic glory BI w alxeia, US breast LT limited HISTORY: Palpable left breast lump TECHNIQUE: Additional 3-D tomosynthesis images of the breasts were performed and synthetic 2-D images were generated. CAD analysis was submitted and interpreted. High resolution Limited left breast ultr asound was performed. COMPARISON: None BREAST PARENCHYMAL COMPOSITION: Dense: The breasts are heterogeneously dense, which may obscure small masses FINDINGS: MAMMOGRAPHIC FINDINGS: The breast are symmetric. No suspicious masses, calcifications or architectural distortion in either breast. ULTRASOUND: Limited left breast ultrasound: Normal heterogeneous echotexture without focal solid or cystic mass. IMPRESSION: 1. No evidence for malignancy in either breast. 2. Routine yearly screening mammogram and regular clinical breast examination are recommended. BI-RADS Category 1: Negative Reviewed, dictated and finalized at location A. IMPRESSION: 1. No evidence for malignancy in either breast. 2. Routine yearly screening mammogram and regular clinical breast examination a re recommended. BI-RADS Category 1: Negative
== END 2023-05-23 11:23 | disposition home or self-care (01) ==
PROVIDERS: PCP Family Medicine; Visit Provider Obstetrics & Gynecology
DX: N63.20 Unspecified lump in the left breast, unspecified quadrant (principal); R92.8 Other abnormal and inconclusive findings on diagnostic imaging of breast
CPT/HCPCS: 76642; 77062; 77066; G0279